=== PATIENT | female | born 1945 | race African-American/Black ===

== ENCOUNTER → 2017-03-01 | Outpatient (CLI) | payer MEDICARE, BC ==
[~2017-03-01] MED LIST: ALBU90AE IH; ASPI-1159 PO; FURO40TA5 PO; GLYB5TAB7 PO; HYDR-4134 PO; LOSA25TA12 PO; METF-516 PO; METF500T4 PO; P20 PO; PROT40 PO; ROFL500T PO; UMEC62.5 IH
== END | disposition home or self-care (01) ==
LOC: RAD 10:47
PROVIDERS: ATTEND Internal Medicine Pulmonary Disease
DX: J44.9 Chronic obstructive pulmonary disease, unspecified (principal); I51.7 Cardiomegaly
CPT/HCPCS: 71020